=== PATIENT | male | born 1995 | race African-American/Black ===

== ENCOUNTER 2017-11-05 20:16 | Emergency (ER) | payer SELFPAY ==
[2017-11-05 20:43] LABS: Bilirubin Negative (Negative); Blood, Urine Trace (Negative); Clarity CLOUDY (Clear); Glucose, Urine (Dipstick) Negative (Negative); Leukocyte Moderate (Negative); Nitrite Negative (Negative); Protein, Urine (Dipstick) Negative (Neg-Trace); Specific Gravity, Urine 1.005 (1.002-1.036); Urobilinogen 0.2 mg/dL (0.2-1.0)
[2017-11-05 20:47] LABS: #Basophils 0.1 thou/uL (0.0-0.2); #Eosinphils 0.1 thou/uL (0.0-0.7); #Lymphocytes 2.9 thou/uL (1.20-3.40); #Monocytes 0.9 thou/uL (0.11-0.59); #Neutrophils 5.2 thou/uL (1.40-6.50); %Basophils 1.1 % (0.0-1.0); %Eosinophils 0.6 % (0.0-10.0); %Lymphocytes 31.6 % (21.0-51.0); %Neutrophils 56.8 % (42.0-75.0); Hemoglobin 15.9 g/dL (14.0-18.0); Mean Corpuscular HGB CONC 32.1 g/dL (32.0-36.0); Mean Corpuscular Hemoglobin 25.8 pg (27.0-31.0); Mean Corpuscular Volume 80.4 fl (80.0-94.0); Mean Platelet Volume 6.3 fL (7.4-10.4); Platelet Count 294 thou/uL (130-400); RBC Distribution Width 13.8 % (11.5-14.5); Red Blood Cell (RBC) Count 6.16 mill/uL (4.70-6.10); White Blood Cell (WBC) Count 9.1 thou/uL (4.8-10.8)
[2017-11-05 20:50] LABS: Bacteria/HPF None Seen HPF (None Seen); Hyaline Casts/LPF 0-3 HYALINE CAST LPF (0-3 Hyaline); RBC/HPF 0-3 HPF (0-3); Squamous Epithelial 0-3 HPF (0-3)
[2017-11-05] MEDS ORDERED: Ketorolac Tromethamine 30 MG/ML VIAL ONE (21:08)
[2017-11-05 21:09] LABS: ALT (SGPT) 12 U/L (8-55); AST (SGOT) 17 U/L (5-34); Albumin 4.3 g/dL (3.5-5.0); Alkaline Phosphatase 55 U/L (40-150); Anion Gap 12 mmol/L (10-20); BUN (Urea Nitrogen) 7 mg/dL (8.9-20.6); Bilirubin, Total 0.7 mg/dL (0.2-1.2); Calc. Creatinine Clearance 0 mL/min (70-130); Calcium 9.9 mg/dL (7.8-10.44); Carbon Dioxide 26 mmol/L (22-29); Chloride 101 mmol/L (98-107); Estimated GFR-MDRD 90; Globulin 2.9 g/dL (2.4-3.5); Glucose 81 mg/dL (70-105); Lipase 13 U/L (8-78); Potassium 4.4 mmol/L (3.5-5.1); Protein, Total 7.2 g/dL (6.0-8.3); Sodium 135 mmol/L (136-145)
--- NOTE | 2017-11-05 23:23 | CT ---
CT OF ABDOMEN AND PELVIS 11/05/17 COMPARISON: 06/30/14. HISTORY: Right flank pain radiating anteriorly. TECHNIQUE: Serial axial CT imaging at 5 mm intervals from the lung bases through the pubic symphysis without con trast. Coronal reformatted imaging obtained. FINDINGS: The lack of contrast media limits assessment of the viscera, bowel, vascular structures and for lymph adenopathy. The imaged lung bases are unremarkable. No free intraperitoneal air is noted. Limited assessment of t he liver, gallbladder, spleen, pancreas, adrenal glands and kidneys is unremarkable. No hydronephrosis or nephrolithiasis seen on either side. Paucity of intra-abdominal fat limits detai led assessment of bilateral ureters. Urinary bladder is decompressed. No calcification is seen along the course of either ureter. Limited assessment of the bowel demonstrates no evidence for bowel obstruction. Appendix appears unre markable. No acute osseous abnormality. IMPRESSION: No evidence for obstructive uropathy or nephrolithiasis. POS: [facility]
[2017-11-05] MEDS ORDERED: Methocarbamol 500 MG TAB PO SCH (23:45)
== END 2017-11-05 23:23 | disposition home or self-care (01) ==
LOC: ERS 20:16
DX: N39.0 Urinary tract infection, site not specified (principal)
CPT/HCPCS: 36415; 74176; 80053; 81003; 81015; 83690; 85025; 87086; 96361; 96374; J1885

== ENCOUNTER 2018-01-14 18:02 | Emergency (ER) | payer SELFPAY ==
[~2018-01-14 18:02] MED LIST: ISOVUE-370 76%-LOCM 1 ML ONE
[2018-01-14] MEDS ORDERED: Ondansetron ODT 4 MG TAB ONE (19:09)
[2018-01-14] MEDS ORDERED: Morphine 4 MG/ML VIAL ONE (19:09)
[2018-01-14 19:11] LABS: #Basophils 0.1 thou/uL (0.0-0.2); #Lymphocytes 1.8 thou/uL (1.20-3.40); #Monocytes 1.2 thou/uL (0.11-0.59); #Neutrophils 8.7 thou/uL (1.40-6.50); %Basophils 0.7 % (0.0-1.0); %Eosinophils 0.2 % (0.0-10.0); %Lymphocytes 15.3 % (21.0-51.0); %Monocytes 10.3 % (0.0-10.0); %Neutrophils 73.6 % (42.0-75.0); Hemoglobin 13.3 g/dL (14.0-18.0); Mean Corpuscular HGB CONC 33.4 g/dL (32.0-36.0); Mean Corpuscular Hemoglobin 26.6 pg (27.0-31.0); Mean Corpuscular Volume 79.6 fl (80.0-94.0); Mean Platelet Volume 7.2 fL (7.4-10.4); Platelet Count 284 thou/uL (130-400); RBC Distribution Width 13.5 % (11.5-14.5); Red Blood Cell (RBC) Count 4.99 mill/uL (4.70-6.10); White Blood Cell (WBC) Count 11.8 thou/uL (4.8-10.8)
--- NOTE | 2018-01-14 19:26 | CT ---
NECK CT WITH CONTRAST: CLINICAL HISTORY: Neck pain. Edema. FINDINGS: There is asymmetric soft tissue prominence of the left neck soft tissues, which involves the submenta l, left submandibular, and left buccal regions. There is extensive regional adenopathy. Soft tissue edema is present without a well formed drainable fluid collection. Patient motion distorts imaging anatomy. There is no obvious acute process of the aerodigestive tract. There is prominence of the a denoid and palatine tonsils. Prominent streak artifact from dental hardware limits visualization. R etention cyst formation in the right maxillary sinus is present, and there is scattered paranasal sin us mucosal thickening. There are periapical/periodontal lucencies, notably involving the left mandibu lar premolar region. IMPRESSION: 1. Findings most consistent with facial cellulitis and reactive adenopathy. Recommend clinical maycol elation in this regard. 2. There is no drainable abscess evident. 3. Tonsillar hypertrophy. Limited visualization of the oral cavity and oropharynx due to prominent streak artifact from dental hardware. 4. Incidental note of periapical/periodontal lucencies, notably involving the left mandibular premol ar region, suggestive of a prominent periapical odontogenic abscess. This does approximate and atten uate the overlying lateral left mandibular cortex and may be the source for the patient's soft tissue findings. Recommend dental consultation. POS: [facility]
[2018-01-14] MEDS ORDERED: Clindamycin/D5W 900 mg/50 ml Premix Bag ONE (19:27)
[2018-01-14 19:38] LABS: ALT (SGPT) 14 U/L (8-55); AST (SGOT) 21 U/L (5-34); Albumin 4.3 g/dL (3.5-5.0); Alkaline Phosphatase 70 U/L (40-150); Anion Gap 14 mmol/L (10-20); BUN (Urea Nitrogen) 5 mg/dL (8.9-20.6); Bilirubin, Total 1.9 mg/dL (0.2-1.2); Calc. Creatinine Clearance 0 mL/min (70-130); Carbon Dioxide 26 mmol/L (22-29); Chloride 102 mmol/L (98-107); Estimated GFR-MDRD Greater than 90; Globulin 3.1 g/dL (2.4-3.5); Glucose 97 mg/dL (70-105); Potassium 3.7 mmol/L (3.5-5.1); Protein, Total 7.4 g/dL (6.0-8.3); Sodium 138 mmol/L (136-145)
[2018-01-14] MEDS ORDERED: Acetaminophen/Codeine 30-300mg Tablet ONE (20:50)
== END 2018-01-14 20:58 | disposition home or self-care (01) ==
LOC: ERS 18:02
DX: K12.2 Cellulitis and abscess of mouth (principal); K02.9 Dental caries, unspecified
CPT/HCPCS: 36415; 70491; 80053; 83605; 85025; 87040; 87149; 96365; 96375; J2270; J3490; Q0162

== ENCOUNTER 2018-01-23 08:13 | Inpatient (IN) | payer SELFPAY ==
[2018-01-23] MEDS ORDERED: Ketorolac Tromethamine 30 MG/ML VIAL ONE (09:19)
[2018-01-23 09:42] LABS: Hemoglobin 12.1 g/dL (14.0-18.0); Mean Corpuscular HGB CONC 31.8 g/dL (32.0-36.0); Mean Corpuscular Hemoglobin 25.1 pg (27.0-31.0); Platelet Count 496 thou/uL (130-400); RBC Distribution Width 13.7 % (11.5-14.5); Red Blood Cell (RBC) Count 4.82 mill/uL (4.70-6.10); White Blood Cell (WBC) Count 14.8 thou/uL (4.8-10.8)
[2018-01-23 10:01] LABS: ALT (SGPT) 23 U/L (8-55); AST (SGOT) 17 U/L (5-34); Albumin 3.7 g/dL (3.5-5.0); Alkaline Phosphatase 130 U/L (40-150); Anion Gap 13 mmol/L (10-20); BUN (Urea Nitrogen) 7 mg/dL (8.9-20.6); Bilirubin, Total 0.9 mg/dL (0.2-1.2); Calc. Creatinine Clearance 0 mL/min (70-130); Calcium 9.8 mg/dL (7.8-10.44); Carbon Dioxide 31 mmol/L (22-29); Chloride 96 mmol/L (98-107); Estimated GFR-MDRD Greater than 90; Globulin 4.1 g/dL (2.4-3.5); Glucose 108 mg/dL (70-105); Potassium 3.9 mmol/L (3.5-5.1); Protein, Total 7.8 g/dL (6.0-8.3); Sodium 136 mmol/L (136-145)
[2018-01-23 10:16] LABS: Band 13 % (5-11); Eosinophils 1 % (0-10); Lymphocytes 17 % (21-51); MDiff Complete? YES; Monocytes 10 % (0-10); Neutrophil 59 % (42-75); RBC Morphology Normal
--- NOTE | 2018-01-23 10:45 | CT ---
CONTRAST ENHANCED CT IMAGES OF MANDIBLE MAXILLA: HISTORY: Complaining of jaw pain. Symptoms onset 3 weeks ago, worsening. The patient was sent to the dentist and reportedly on Clindamycin at this time with no relief. FINDINGS: Contrast-enhanced CT images of the mandible maxilla is obtained. Images demonstrate a large left inframandibular mass. There is an area of lucency involving the root of the left 1st molar compatible with dental caries and periodontal abscess. Areas of radiolucency seen along the both lateral and medial aspects of the body of the mandible which extends from the abs cess surrounding the apical portion of the left 1st mandibular molar. The abscess extends both media lly and laterally and extends inferiorly. The abscess extends posteriorly to envelope the inferior m argin of the base of the left body of the mandible extending posteriorly to extend lateral to the lef t mandibular ramus. Overall 3-dimensional size of the left perimandibular abscess measures up to 6.9 x 3.2 x 3.4 cm. Numerous septae are present. The abscess also extends into the left medial pterygo id muscles as well as extending laterally into the left masseter muscle. Extensive left submandibula r and delphian chain lymphadenopathy is also seen. Reactive lymphadenopathy is also seen in the left level II and level III lymph nodes. The abscess compresses the left carotid space posteriorly and m edially. IMPRESSION: Complex enlarged left mandibular origin abscess extending both medial and lateral as well as inferior to the body of the mandible enveloping the left mandibular ramus. The origin appears to be a periap ical abscess from the left 1st molar. Numerous right and left dental caries are also present in other teeth. POS: [facility]
[2018-01-23] MEDS ORDERED: Clindamycin/D5W 900 mg/50 ml Premix Bag ONE (12:10)
--- NOTE | 2018-01-23 13:18 | CON ---
DATE OF CONSULTATION: 01/23/2018 REASON FOR CONSULTATION: Left facial and jaw pain and swelling. HISTORY OF PRESENT ILLNESS: This is a 22-year-old black male with a three week history of left jaw p ain and swelling, and difficulty opening. He has no difficulty swallowing or breathing. He is in no distress currently. He has been in and out of the ER and local dental clinic for the last 3 weeks a nd placed on numerous courses of p.o. antibiotics including Flagyl and clindamycin and amoxicillin wi th no resolution of his swelling. CT scan was taken of his face, neck, and shown to find a large lef t neck and parapharyngeal area. The pterygomandibular area abscess associated with necrotic tooth #1 7 and possibly #19. PAST MEDICAL HISTORY: None. PAST SURGICAL HISTORY: The patient had a testicular torsion repair as a kid. SOCIAL HISTORY: Negative x3. Works, washing dishes. MEDICATIONS: None. ALLERGIES: No known drug allergies. PHYSICAL EXAMINATION: GENERAL: The patient is awake, alert, oriented x3, he is in no acute distress. VITAL SIGNS: Blood pressure 146/78, pulse 67, respiration 12, temperature 98.7, satting 98% on room air. GENERAL: He is awake, alert, oriented x3, no acute distress. HEENT: Pupils are equal, round, and reactive to light and accommodation. His oral opening is approx imately 10 mm. He has a large amount of left neck and jaw swelling. His oropharynx is clear. He merida s a necrotic tooth #17 which was partially impacted as well as a decayed necrotic tooth #19. CT scan of the face and neck shows a large deep neck space abscess, necrotic tooth #[address] Adrienne thacker, Radiology. ASSESSMENT: This is a 22-year-old black male with a left necrotic tooth #17 and #19 and associated d eep neck space abscesses which appear to be in the left pterygomandibular, submandibular, submasseter ic spaces. PLAN: Place patient on IV antibiotics per Hospitalist team. Okay for clindamycin 900 mg IV every 6 hours right now as well as planning on keeping the patient n.p.o. and will take to the operating room today for incision and drainage of above noted abscess is extraction of noted necrotic teeth #17 and #19, possibly #18. The patient may need intubation postoperatively due to large size of mass.
[2018-01-23] MEDS ORDERED: Glycopyrrolate 0.2 MG/ML 5 ML SYRINGE ONE (13:36)
[2018-01-23] MEDS ORDERED: PROPOFOL 200 MG/20 ML VIAL ONE (13:36)
[2018-01-23] MEDS ORDERED: Ondansetron PF 4 MG/2 ML Vial ONE (13:36)
[2018-01-23] MEDS ORDERED: Acetaminophen 325 MG TAB PO PRN (14:09)
[2018-01-23] MEDS ORDERED: Ondansetron PF 4 MG/2 ML Vial IVP PRN (14:09)
[2018-01-23] MEDS ORDERED: Dextrose 5 % And 0.9 % NaCl 1,000 ML IV SCH (14:15)
[2018-01-23] MEDS ORDERED: ISOVUE-370 76%-LOCM 1 ML ONE (14:51)
[2018-01-23] MEDS ORDERED: Ibuprofen 200 MG TAB PO SCH (15:00)
[2018-01-23] MEDS ORDERED: Chlorhexidine Gluconate 15 ML UDCUP SSP ONE (16:21)
[2018-01-23] MEDS ORDERED: Lidocaine 2% w/Epinephrine 1:200K 20 ML VIAL ONE (16:21)
[2018-01-23] MEDS ORDERED: Dexmedetomidine 200 MCG/2 ML VIAL ONE (16:30)
--- NOTE | 2018-01-23 16:49 | HP ---
REASON FOR ADMISSION: Left mandibular abscess. HISTORY OF PRESENT ILLNESS: The patient gives history of progressive swelling of the left cheek area from the last 3 weeks. He had gone to see local dentist and was prescribed antibiotics. This was not coming down and he went to [facility] to see a physician there. He was advised to go to the emergency room as the swelling was really big and he needed IV antibiotics and further consultations. Currently, patient has difficulty opening his mouth. He also has pain in the left mandible area. The pain is 4-5/10 in intensity with no radiation as such. The patient admits to having caries tooth and states it might be his wisdom tooth. He had a CAT scan done here which shows multiple caries with large submandibular abscess on the left side. PAST MEDICAL/SURGICAL HISTORY: Testicular torsion with surgery done 3 or 4 years ago. No other medical history or surgery done. CURRENT MEDICATIONS: None. ALLERGIES: No known drug allergies. PERSONAL HISTORY: Does not abuse alcohol or drugs. No history of smoking. Works at [employer]. FAMILY HISTORY: Mother is currently in a skilled nursing. Father lives separately. He stays with his grandma. CODE STATUS: FULL. REVIEW OF SYSTEMS: The following complete review of systems was negative, unless otherwise mentioned in the HPI or below: Constitutional: Weight loss or gain, ability to conduct usual activities. Skin: Rash, itching. Eyes: Double vision, pain. ENT/Mouth: Nose bleeding, neck stiffness, pain, tenderness. Cardiovascular: Palpitations, dyspnea on exertion, orthopnea. Respiratory: Shortness of breath, wheezing, cough, hemoptysis, fever or night sweats. Gastrointestinal: Poor appetite, abdominal pain, heartburn, nausea, vomiting, constipation, or diarrhea. Genitourinary: Urgency, frequency, dysuria, nocturia. Musculoskeletal: Pain, swelling. Neurologic/Psychiatric: Anxiety, depression. Allergy/Immunologic: Skin rash, bleeding tendency. PHYSICAL EXAMINATION: GENERAL: Patient is a 22-year-old male who is currently in mild distress from pain. VITAL SIGNS: Blood pressure 130/70, pulse 68 per minute, respiratory rate 18 per minute, temperature 98.7 degrees Fahrenheit, saturating 100% on room air. NECK: Supple, no elevated JVD. HEENT: Eyes, extraocular muscles intact. Pupils reacting to light. Oral cavity, patient appears to have trismus and he also has large left mandibular and submandibular area of swelling. There is no fluctuant mass felt. No ear discharge. CARDIOVASCULAR: S1, S2 heard. Regular rhythm. RESPIRATORY: Air entry 2+ bilateral. No rales or rhonchi. ABDOMEN: Soft, bowel sounds heard. No tenderness, rigidity or guarding. EXTREMITIES: No peripheral edema or calf tenderness. VASCULAR SYSTEM: Peripheral pulses 2+ bilateral, no ischemic ulcerations or gangrene. CENTRAL NERVOUS SYSTEM: No gross focal deficits seen. Patient is alert, awake , and oriented well. PSYCHIATRIC: Patient's mood is euthymic. No hallucinations or delusions. LABORATORY AND X-RAY FINDINGS: White count of 14, H&H 12 and 38, platelet count 496 with 59% neutrophils, 13% bands. Serum bicarbonate 31, BUN 7, creatinine 0.9, glucose 108. Liver enzymes within normal limits. Albumin is 3.7. Facial bone CT done shows complex enlarged left mandibular origin abscess extending both medial and lateral as well as inferior to the body of the mandible enveloping the left mandibular ramus, the origin appears to be a periapical abscess from the left first molar. There were also numerous right and left dental caries seen. CLINICAL IMPRESSION AND PLAN: Patient has already been evaluated by Dr. Christian , facial maxillary surgeon in the ER. He plans to take him to OR for drainage of the abscess and extraction of 17, 18 and 19 tooth on the left side. He will be on clindamycin 900 mg q.8 hourly along with D5 normal saline at 100 mL per hour. He will be kept n.p.o. for the procedure. He will also be on Motrin and morphine for pain. We will continue to closely monitor him on medical/surgical floor. [facility]
[2018-01-23] MEDS ORDERED: Oxymetazoline HCl 0.05% ( 15 ML ) ONE (16:52)
[2018-01-23] MEDS ORDERED: Midazolam HCl 2 mg/2 ml Vial ONE (16:52)
[2018-01-23] MEDS ORDERED: Fentanyl 100 MCG/2 ML VIAL ONE (16:52)
[2018-01-23] MEDS ORDERED: Lidocaine 2% Jelly 5 ML TUBE ONE (16:59)
[2018-01-23 17:23] VITALS: BMI 24.4
[2018-01-23] MEDS ORDERED: PACU-Morphine 4MG/ML VIAL SLOW IVP PRN (17:58)
[2018-01-23] MEDS ORDERED: Meperidine HCl/PF 25 MG/ML VIAL SLOW IVP PRN (17:58)
[2018-01-23] MEDS ORDERED: Morphine Sulfate 2 MG/ML SYRINGE SLOW IVP PRN (17:58)
[2018-01-23] MEDS ORDERED: Promethazine HCl 25 MG/ML VIAL SLOW IVP PRN (17:58)
[2018-01-23] MEDS ORDERED: HYDROmorphone 2 MG/ML VIAL SLOW IVP PRN (17:58)
[2018-01-23] MEDS ORDERED: Meperidine HCl/PF 25 MG/ML VIAL ONE (18:57)
[2018-01-23] MEDS ORDERED: Morphine 4 MG/ML VIAL ONE (19:55)
[2018-01-23] MEDS ORDERED: Clindamycin/D5W 900 MG in Premix Bag 1 BAG IVPB SCH (20:00)
[2018-01-23] MEDS ORDERED: Morphine 4 MG/ML VIAL SLOW IVP PRN (20:33)
[2018-01-23] MEDS ORDERED: Ondansetron PF 4 MG/2 ML Vial SLOW IVP PRN (20:34)
[2018-01-23] MEDS: D5 0.9% NS w/ 20 mEq KCl 1,000 ML IV SCH (20:51)
[2018-01-23] MEDS: Famotidine 20 MG TAB PO SCH (21:00)
[2018-01-23] MEDS: Ibuprofen 800 MG TAB PO SCH (23:50)
[2018-01-23] MEDS: HYDROcodone/Acetaminophen 7.5/325 mg Tablet PO PRN (23:51)
[2018-01-23] MEDS: Chlorhexidine Gluconate 15 ML UDCUP SSP SCH (23:52)
[2018-01-23] MEDS: Clindamycin/D5W 900 MG in Premix Bag 1 BAG IVPB SCH (23:52)
[2018-01-24 05:35] LABS: Anion Gap 9 mmol/L (10-20); BUN (Urea Nitrogen) 9 mg/dL (8.9-20.6); Calc. Creatinine Clearance 138 mL/min (70-130); Calcium 9.2 mg/dL (7.8-10.44); Carbon Dioxide 34 mmol/L (22-29); Chloride 98 mmol/L (98-107); Estimated GFR-MDRD Greater than 90; Glucose 104 mg/dL (70-105); Potassium 4.2 mmol/L (3.5-5.1); Sodium 137 mmol/L (136-145)
[2018-01-24] MEDS: Ibuprofen 800 MG TAB PO SCH ×4 (06:28→23:53)
[2018-01-24 06:31] LABS: Hemoglobin 11.1 g/dL (14.0-18.0); Mean Corpuscular HGB CONC 32.4 g/dL (32.0-36.0); Mean Corpuscular Hemoglobin 25.6 pg (27.0-31.0); Mean Corpuscular Volume 79.3 fl (80.0-94.0); Mean Platelet Volume 7.1 fL (7.4-10.4); Platelet Count 470 thou/uL (130-400); RBC Distribution Width 13.6 % (11.5-14.5); Red Blood Cell (RBC) Count 4.34 mill/uL (4.70-6.10); White Blood Cell (WBC) Count 21.3 thou/uL (4.8-10.8)
[2018-01-24] MEDS: Clindamycin/D5W 900 MG in Premix Bag 1 BAG IVPB SCH ×4 (06:31→23:54)
[2018-01-24 08:47] LABS: Band 16 % (5-11); Eosinophils 1 % (0-10); Lymphocytes 12 % (21-51); MDiff Complete? YES; Monocytes 13 % (0-10); Neutrophil 54 % (42-75); PLT Morphology Comment Appears Increased; Polychromasia SLIGHT = 2-3 cells (100X) (0-2/hpf); Reactive Lymphocytes 1 % (0-10); Target Cells SLIGHT = 2-5 cells (100X) (0-1/hpf)
[2018-01-24] MEDS: Enoxaparin Sodium 40 MG/0.4 ML SYRINGE SC SCH (09:04)
[2018-01-24] MEDS: Famotidine 20 MG TAB PO SCH ×2 (09:04→21:23)
[2018-01-24] MEDS: Chlorhexidine Gluconate 15 ML UDCUP SSP SCH ×3 (09:06→21:25)
--- NOTE | 2018-01-24 13:27 | PDOC.PN ---
- Subjective Encounter Start Date: 01/24/18 Encounter Start Time: 10:50 Subjective: still has swelling of left cheek and neck area -: pain is controlled with current meds -: grandmother in room - Objective Resuscitation Status: Resuscitation Status FULL:Full Resuscitation MAR Reviewed: Yes Vital Signs & Weight: Vital Signs (12 hours) Temp Pulse Resp BP BP Pulse Ox 01/24/18 12:59 97.9 F 79 18 129/67 01/24/18 09:01 98.6 F 72 18 121/60 100 01/24/18 08:15 98.6 F 72 18 01/24/18 04:40 98 F 66 20 118/55 L 100 I&O: 01/23/18 01/24/18 01/25/18 06:59 06:59 06:59 Intake Total 2290 Balance 2290 Result Diagrams: 01/24/18 04:10 01/24/18 04:10 Phys Exam - Physical Examination HEENT: PERRLA, sclera anicteric has drain+ Neck: no JVD Respiratory: no wheezing, no rales Cardiovascular: RRR, no significant murmur Gastrointestinal: soft, non-tender, positive bowel sounds Musculoskeletal: no edema, pulses present Neurological: non-focal, moves all 4 limbs Psychiatric: normal affect, A&O x 3 Dx/Plan (1) left mandibular abscess Status: Acute Comment: s/p I&D 01/23/2018 (2) Dental caries Code(s): K02.9 - DENTAL CARIES, UNSPECIFIED Status: Acute (3) Sepsis Code(s): A41.9 - SEPSIS, UNSPECIFIED ORGANISM Status: Acute Qualifiers: Sepsis type: sepsis due to unspecified organism Qualified Code(s): A41.9 - Sepsis, unspecified organism - Plan is on clindamycin -: motrin, morphine prn -: gentle iv hydration -: diet per * . Review of Systems - Medications/Allergies Allergies/Adverse Reactions: Allergies Allergy/AdvReac Type Severity Reaction Status Date / Time No Known Drug Allergies Allergy Unverified 11/05/17 23:40 Medications: Current Medications Acetaminophen (Tylenol) 650 mg PO Q4H PRN PRN Reason: Headache/Fever or Pain Hydrocodone Bitart/Acetaminophen ([place] 7.5/325) 1 tab PO Q6H PRN PRN Reason: Moderate Pain (4-6) Last Admin: 01/23/18 23:51 Dose: 1 tab Chlorhexidine Gluconate (Chlorhexidine Gluconate) 15 ml SSP TID [facility] Last Admin: 01/24/18 09:06 Dose: 15 ml Enoxaparin Sodium (Lovenox) 40 mg SC 0900 [facility] Last Admin: 01/24/18 09:04 Dose: 40 mg Famotidine (Pepcid) 20 mg PO BID [facility] Last Admin: 01/24/18 09:04 Dose: 20 mg Potassium Chloride/Dextrose/Sod Cl (D5 0.9% Ns W/ 20 Meq Kcl) 1,000 mls @ 100 mls/hr IV .Q10H [facility] Last Admin: 01/23/18 20:51 Dose: 1,000 mls Clindamycin Phosphate/Dextrose (900 mg/ Device) 50 mls @ 100 mls/hr IVPB Q6HR [facility] Last Admin: 01/24/18 06:31 Dose: 50 mls Ibuprofen (Motrin) 800 mg PO Q6HR [facility] Last Admin: 01/24/18 06:28 Dose: 800 mg Morphine Sulfate (Morphine) 2 mg SLOW IVP Q2H PRN PRN Reason: Severe Pain (7-10) Ondansetron HCl (Zofran) 4 mg SLOW IVP Q6H PRN PRN Reason: Nausea/Vomiting Sodium Chloride (Flush - Normal Saline) 10 ml IVF Q12HR [facility] Last Admin: 01/24/18 09:05 Dose: Not Given Sodium Chloride (Flush - Normal Saline) 10 ml IVF PRN PRN PRN Reason: Saline Flush
[2018-01-24] MEDS: HYDROcodone/Acetaminophen 7.5/325 mg Tablet PO PRN ×2 (13:35→21:24)
[2018-01-24] MEDS: D5 0.9% NS w/ 20 mEq KCl 1,000 ML IV SCH ×2 (19:57→21:34)
[2018-01-25] MEDS: HYDROcodone/Acetaminophen 7.5/325 mg Tablet PO PRN ×2 (05:27→11:50)
[2018-01-25] MEDS: Ibuprofen 800 MG TAB PO SCH ×2 (05:28→11:45)
[2018-01-25] MEDS: Clindamycin/D5W 900 MG in Premix Bag 1 BAG IVPB SCH ×2 (05:30→11:49)
[2018-01-25 05:46] LABS: #Eosinphils 0.4 thou/uL (0.0-0.7); #Lymphocytes 2.4 thou/uL (1.20-3.40); #Monocytes 1.4 thou/uL (0.11-0.59); #Neutrophils 7.8 thou/uL (1.40-6.50); %Basophils 0.3 % (0.0-1.0); %Lymphocytes 19.8 % (21.0-51.0); %Monocytes 11.4 % (0.0-10.0); %Neutrophils 65.5 % (42.0-75.0); Hemoglobin 10.8 g/dL (14.0-18.0); Mean Corpuscular HGB CONC 31.4 g/dL (32.0-36.0); Mean Corpuscular Hemoglobin 24.8 pg (27.0-31.0); Mean Corpuscular Volume 78.9 fl (80.0-94.0); Mean Platelet Volume 6.8 fL (7.4-10.4); Platelet Count 572 thou/uL (130-400); RBC Distribution Width 13.7 % (11.5-14.5); Red Blood Cell (RBC) Count 4.38 mill/uL (4.70-6.10)
[2018-01-25 06:05] LABS: Anion Gap 11 mmol/L (10-20); BUN (Urea Nitrogen) 14 mg/dL (8.9-20.6); Calc. Creatinine Clearance 118 mL/min (70-130); Calcium 9.2 mg/dL (7.8-10.44); Carbon Dioxide 32 mmol/L (22-29); Chloride 98 mmol/L (98-107); Estimated GFR-MDRD Greater than 90; Glucose 105 mg/dL (70-105); Potassium 3.8 mmol/L (3.5-5.1); Sodium 137 mmol/L (136-145)
[2018-01-25] MEDS: D5 0.9% NS w/ 20 mEq KCl 1,000 ML IV SCH (06:31)
--- NOTE | 2018-01-25 08:12 | OP ---
DATE OF PROCEDURE: 01/23/2018 PREOPERATIVE DIAGNOSES: Left submandibular, left pterygomandibular, left submasseteric abscess, necr otic teeth 17 and 19. PROCEDURE PERFORMED: Surgical removal of teeth #17 and 19. Tooth #17 is a soft tissue impacted, inc ision and drainage of left submandibular, left pterygomandibular left submasseteric abscess. POSTOPERATIVE DIAGNOSES: Left submandibular, left pterygomandibular, left submasseteric abscess as w ell as necrotic decayed teeth 17 and 19. COMPLICATIONS: None. DRAINS: The patient has 3 drains, they are all Myra drains; one is going to the submandibular spa ce to the extraction socket of #17, exits the left neck and the second one is going from the left sub masseteric space to the left neck. A third one is going to the pterygomandibular space and the area distal to the mandible exiting left neck. They were all secured with 2-0 Prolene stitches. SPECIMENS: Purulent culture was taken from the submandibular space through aspiration. ANESTHESIA: General endotracheal anesthesia, nasal tube was used. ESTIMATED BLOOD LOSS: 20 mL. BRIEF PATIENT HISTORY AND PROCEDURE IN DETAIL: This is a 22-year-old male with an approximately 3-we ek history of left jaw pain and swelling. He had progressive swelling, was on multiple p.o. course o f antibiotics per general dentist and primary care physicians. He finally came to the ER where he wa s noted to have the above noted space infections on CT scan and exam. The patient was very, very swo llen, very significant. The patient was taken to the operating room, prepped and draped in sterile f ashion. A throat pack was placed after suctioning of the oropharynx. Local anesthetic infiltration in the left neck and inferior alveolar nerve block were given with 1% lidocaine 1:10,000 epinephrine. An approximately 1.5 to 2 cm incision was made, curvilinear 2 cm inferior to the mandibular inferio r border and the left posterior mandible area. Sharp dissection through skin, subcutaneous tissue do wn to platysma. Platysma was then undermined and excised with a Bovie. Hemostat dissection in the s ubmandibular space with alyce pus as well as into the pterygomandibular space as well as the submasse teric space. Finger dissection was then used, large copious amounts of foul-smelling pus were draine d. Area irrigated with normal saline. The drains placed in the above noted fashion. The procedure was then taken to the oral cavity. A bite block was placed. Full thickness mucoperiosteal flap to t he buccal lingual of #17 through 19 and an elevator removal of tooth #17 with pus expelled from the s ocket, 19 was also removed after full thickness mucoperiosteal flap and suctioning of the tooth and e levator. The sockets were curetted thoroughly, irrigation with normal saline. A throat pack was rem floridalma. The patient tolerated the procedure well.
[2018-01-25] MEDS ORDERED: Docusate 100 MG CAP PO SCH (09:00)
[2018-01-25] MEDS: Enoxaparin Sodium 40 MG/0.4 ML SYRINGE SC SCH (11:45)
[2018-01-25] MEDS: Chlorhexidine Gluconate 15 ML UDCUP SSP SCH (11:45)
[2018-01-25] MEDS: Famotidine 20 MG TAB PO SCH (11:45)
[2018-01-25 11:51] VITALS: BP 127/67; TEMP 97.5
--- NOTE | 2018-01-25 12:43 | PDOC.PN ---
- Subjective Encounter Start Date: 01/25/18 Encounter Start Time: 08:30 Subjective: pain and swelling is coming down from left cheek and neck area -: feels better - Objective Resuscitation Status: Resuscitation Status FULL:Full Resuscitation MAR Reviewed: Yes Vital Signs & Weight: Vital Signs (12 hours) Temp Pulse Resp BP Pulse Ox 01/25/18 11:50 97.5 F L 65 20 127/67 01/25/18 07:49 98.5 F 71 20 139/61 100 01/25/18 04:15 98.6 F 74 18 116/51 L 99 I&O: 01/24/18 01/25/18 01/26/18 06:59 06:59 06:59 Intake Total 2290 1360 Balance 2290 1360 Result Diagrams: 01/25/18 05:26 01/25/18 05:26 Phys Exam - Physical Examination HEENT: PERRLA, sclera anicteric edema of left mandibular and cheek area is receding Neck: no JVD has 3 pen [place] drains+ Respiratory: no wheezing, no rales Cardiovascular: RRR, no significant murmur Gastrointestinal: soft, non-tender, positive bowel sounds Musculoskeletal: no edema, pulses present Neurological: non-focal, moves all 4 limbs Psychiatric: normal affect, A&O x 3 Dx/Plan (1) left mandibular abscess Status: Acute Comment: s/p I&D and extraction of tooth # 17 & 19, on 01/23/2018 (2) Dental caries Code(s): K02.9 - DENTAL CARIES, UNSPECIFIED Status: Acute (3) Sepsis Code(s): A41.9 - SEPSIS, UNSPECIFIED ORGANISM Status: Acute Qualifiers: Sepsis type: sepsis due to unspecified organism Qualified Code(s): A41.9 - Sepsis, unspecified organism Comment: resolving - Plan hemostable -: is on clindamycin, motrin and morphine prn -: full liq diet, ensure 1 can tid -: dc plan per oral surgery advice * . Review of Systems - Medications/Allergies Allergies/Adverse Reactions: Allergies Allergy/AdvReac Type Severity Reaction Status Date / Time No Known Drug Allergies Allergy Verified 01/25/18 05:26 Medications: Current Medications Acetaminophen (Tylenol) 650 mg PO Q4H PRN PRN Reason: Headache/Fever or Pain Hydrocodone Bitart/Acetaminophen ([place] 7.5/325) 1 tab PO Q6H PRN PRN Reason: Moderate Pain (4-6) Last Admin: 01/25/18 11:50 Dose: 1 tab Chlorhexidine Gluconate (Chlorhexidine Gluconate) 15 ml SSP TID [facility] Last Admin: 01/25/18 11:45 Dose: 15 ml Docusate Sodium (Colace) 100 mg PO BID [facility] Last Admin: 01/25/18 11:45 Dose: 100 mg Enoxaparin Sodium (Lovenox) 40 mg SC 0900 [facility] Last Admin: 01/25/18 11:45 Dose: 40 mg Famotidine (Pepcid) 20 mg PO BID [facility] Last Admin: 01/25/18 11:45 Dose: 20 mg Potassium Chloride/Dextrose/Sod Cl (D5 0.9% Ns W/ 20 Meq Kcl) 1,000 mls @ 100 mls/hr IV .Q10H [facility] Last Admin: 01/25/18 06:31 Dose: Not Given Clindamycin Phosphate/Dextrose (900 mg/ Device) 50 mls @ 100 mls/hr IVPB Q6HR [facility] Last Admin: 01/25/18 11:49 Dose: 50 mls Ibuprofen (Motrin) 800 mg PO Q6HR [facility] Last Admin: 01/25/18 11:45 Dose: 800 mg Morphine Sulfate (Morphine) 2 mg SLOW IVP Q2H PRN PRN Reason: Severe Pain (7-10) Ondansetron HCl (Zofran) 4 mg SLOW IVP Q6H PRN PRN Reason: Nausea/Vomiting Sodium Chloride (Flush - Normal Saline) 10 ml IVF Q12HR [facility] Last Admin: 01/25/18 11:46 Dose: Not Given Sodium Chloride (Flush - Normal Saline) 10 ml IVF PRN PRN PRN Reason: Saline Flush
--- NOTE | 2018-01-26 02:03 | DIS ---
DATE OF ADMISSION: 01/23/2018 DATE OF DISCHARGE: 01/25/2018 DISCHARGE DISPOSITION: To home. PRIMARY DISCHARGE DIAGNOSES: Patient is status post incision and drainage of left submandibular, left pterygomandibular, left submasseteric abscess, and surgical removal of teeth #17 and #19 done on 01/23/[address] Christian. PROCEDURES DONE DURING HOSPITALIZATION: Patient had above mentioned surgery done by Dr. Christian on the . Facial bone CAT scan done showed complex enlarged left mandibular origin abscess extending both medial and lateral as well as inferior to the body of the mandible, enveloping the left mandibular ramus, the origin appears to be a periapical abscess from the left first molar, numerous right and left dental caries were present. Had a white count of 21 on the 5th with discharge numbers of 12 and 16% bands, which has since resolved. Discharge BUN and creatinine is 14 and 1.1. DISCHARGE MEDICATIONS: Clindamycin, Motrin, both the dose and duration per Dr. Christian which has been faxed to his pharmacy by Dr. Christian. ALLERGIES: No known drug allergies. DISCHARGE PLAN: Patient will be following up with Dr. Christian in his office tomorrow. BRIEF COURSE DURING HOSPITALIZATION: The patient initially came to ER for swelling of left jaw and face. Initial CT scan of the facial bones done revealed abscess in the area around the mandible and submandibular area. He had also known history of caries. He had failed outpatient antibiotics as well. The patient was evaluated by Dr. Christian and was taken for incision and drainage of the abscess. He has three Myra drains placed and this will be removed in the morning after he evaluates him in his office tomorrow. The patient was placed on clindamycin, morphine, and a high dose Motrin. He has responded well to above measures. He is on full-liquid diet at present. He had extraction of tooth #17 and #19. This was done along with incision and drainage of the abscess. He is ambulating and he is hemodynamically stable. He has been cleared for discharge by Dr. Christian today. Please see a face-to- face documentation on [facility] for the day of discharge. [facility]
== END 2018-01-25 14:50 | disposition home or self-care (01) | DRG 854 ==
LOC: ERS 08:13 → OBSVTOIN 13:13 → 3SE 13:13
PROVIDERS: ADMIT Internal Medicine; ATTEND Internal Medicine
PROC: 0CDXXZ1 Extraction of Lower Tooth, Multiple, External Approach (ICD-10-PCS; principal; 2018-01-23)
PROC: 0W950ZZ Drainage of Lower Jaw, Open Approach (ICD-10-PCS; 2018-01-23)
DX: A41.9 Sepsis, unspecified organism (principal); K12.2 Cellulitis and abscess of mouth; L02.11 Cutaneous abscess of neck; K02.9 Dental caries, unspecified; B96.89 Other specified bacterial agents as the cause of diseases classified elsewhere
CPT/HCPCS: 36415; 70487; 80048; 80053; 85025; 87070; 87076; 87077; 87205; 96365; 96374; 96375; J1650; J1885; J2175; J2250; J2270; J2405; J2704; J3010; J3490

== ENCOUNTER 2018-12-07 20:42 | Inpatient (IN) | payer SELFPAY ==
[2018-12-07] MEDS ORDERED: Pantoprazole 40 MG VIAL ONE (21:55)
[2018-12-07] MEDS ORDERED: Water For Inject, Bacteriostat 30 ML ONE (21:57)
[2018-12-07 22:14] LABS: Hemoglobin 8.6 g/dL (14.0-18.0); Mean Corpuscular HGB CONC 30.9 g/dL (32.0-36.0); Mean Corpuscular Hemoglobin 24.6 pg (27.0-31.0); Mean Corpuscular Volume 79.5 fL (78.0-98.0); Mean Platelet Volume 6.9 fL (7.4-10.4); Platelet Count 247 thou/uL (130-400); RBC Distribution Width 14.1 % (11.5-14.5); Red Blood Cell (RBC) Count 3.51 mill/uL (4.70-6.10); White Blood Cell (WBC) Count 8.9 thou/uL (4.8-10.8)
[2018-12-07 22:28] LABS: #Basophils 0.1 thou/uL (0.0-0.2); #Eosinphils 0.1 thou/uL (0.0-0.7); #Lymphocytes 2.3 thou/uL (1.20-3.40); #Monocytes 0.7 thou/uL (0.11-0.59); #Neutrophils 5.7 thou/uL (1.40-6.50); %Eosinophils 1.5 % (0.0-10.0); %Lymphocytes 26.3 % (21.0-51.0); %Monocytes 7.5 % (0.0-10.0); %Neutrophils 63.7 % (42.0-75.0); Anisocytosis SLIGHT = 6-15 cells (100X) (0-5/hpf); Hypochromia SLIGHT = 6-15 cells (100X) (0-5/hpf); MDiff Complete? YES; Target Cells SLIGHT = 2-5 cells (100X) (0-1/hpf)
[2018-12-07 22:29] LABS: INR-International Normal Ratio 1.1; PTT 25.5 SEC (22.9-36.1); Prothrombin Time 13.8 SEC (12.0-14.7)
[2018-12-07 22:31] LABS: ALT (SGPT) 12 U/L (8-55); AST (SGOT) 19 U/L (5-34); Albumin 3.7 g/dL (3.5-5.0); Alkaline Phosphatase 47 U/L (40-150); Anion Gap 11 mmol/L (10-20); BUN (Urea Nitrogen) 17 mg/dL (8.9-20.6); Bilirubin, Total 0.2 mg/dL (0.2-1.2); Calc. Creatinine Clearance 0 mL/min (70-130); Calcium 8.8 mg/dL (7.8-10.44); Carbon Dioxide 27 mmol/L (22-29); Chloride 104 mmol/L (98-107); Estimated GFR-MDRD Greater than 90; Globulin 2.2 g/dL (2.4-3.5); Glucose 103 mg/dL (70-105); Potassium 3.8 mmol/L (3.5-5.1); Protein, Total 5.9 g/dL (6.0-8.3); Sodium 138 mmol/L (136-145)
[2018-12-08 00:22] VITALS: BMI 27.7
[2018-12-08] MEDS ORDERED: Sodium Chloride 0.9% (PF) 10 ML VIAL FS PRN (01:43)
[2018-12-08 02:02] LABS: #Basophils 0.1 thou/uL (0.0-0.2); #Eosinphils 0.1 thou/uL (0.0-0.7); #Lymphocytes 3.4 thou/uL (1.20-3.40); #Monocytes 0.7 thou/uL (0.11-0.59); #Neutrophils 4.8 thou/uL (1.40-6.50); %Basophils 0.9 % (0.0-1.0); %Eosinophils 1.6 % (0.0-10.0); %Lymphocytes 37.1 % (21.0-51.0); %Monocytes 7.9 % (0.0-10.0); %Neutrophils 52.4 % (42.0-75.0); Hemoglobin 8.3 g/dL (14.0-18.0); Mean Corpuscular HGB CONC 32.9 g/dL (32.0-36.0); Mean Corpuscular Hemoglobin 25.4 pg (27.0-31.0); Mean Corpuscular Volume 77.4 fL (78.0-98.0); Mean Platelet Volume 7.5 fL (7.4-10.4); Platelet Count 234 thou/uL (130-400); RBC Distribution Width 13.6 % (11.5-14.5); Red Blood Cell (RBC) Count 3.28 mill/uL (4.70-6.10); White Blood Cell (WBC) Count 9.2 thou/uL (4.8-10.8)
[2018-12-08] MEDS ORDERED: Diabetic Tussin 200 MG/10 ML UDCUP PO PRN (07:24)
[2018-12-08] MEDS ORDERED: Eucerin (Mineral Oil/Petrolatum,White) 30 gm Jar TOP PRN (07:24)
[2018-12-08] MEDS ORDERED: Cepastat Lozenges 1 LOZ PO PRN (07:24)
[2018-12-08] MEDS ORDERED: Artificial Tears 18 DROP/0.9 ML EA EYE PRN (07:24)
[2018-12-08] MEDS ORDERED: Senokot S 8.6-50 MG TAB PO PRN (07:24)
[2018-12-08] MEDS ORDERED: Loratadine 10 MG TAB PO PRN (07:24)
[2018-12-08] MEDS ORDERED: Ondansetron ODT 4 MG TAB PO PRN (07:24)
[2018-12-08] MEDS ORDERED: Acetaminophen 325 MG TAB PO PRN (07:24)
[2018-12-08] MEDS ORDERED: Sodium Chloride 0.65% Nasal 44 ML BOT EA NARE PRN (07:24)
[2018-12-08] MEDS ORDERED: Ondansetron PF 4 MG/2 ML Vial IVP PRN (07:24)
[2018-12-08] MEDS ORDERED: Loperamide HCl 2 MG CAP PO PRN (07:24)
[2018-12-08] MEDS ORDERED: hydrALAZINE 20 MG/ML VIAL SLOW IVP PRN (07:24)
[2018-12-08] MEDS ORDERED: HYDROcodone/Acetaminophen 5/325 mg Tablet PO PRN (07:24)
[2018-12-08] MEDS ORDERED: Bisacodyl 10 MG SUPP PR PRN (07:24)
[2018-12-08] MEDS ORDERED: Calcium Carbonate 500 MG ChewTAB PO PRN (07:24)
[2018-12-08] MEDS: Pantoprazole 40 MG VIAL IVP SCH ×2 (08:03→20:52)
[2018-12-08] MEDS: Sodium Chloride 0.9% 1,000 ML IV SCH ×2 (08:08→19:10)
--- NOTE | 2018-12-08 11:33 | HP ---
PRIMARY CARE PHYSICIAN: [facility] Call admission. REASON FOR ADMISSION: GI bleed. HISTORY OF PRESENT ILLNESS: A 23-year-old male, who has no significant medical history, who reports that last Tuesday and Tuesday, he drank heavily alcohol. Subsequently, he did not have any immediate symptoms, but three days later, he was having a blood with stool. Each day with bowel movement, he was noticing mixed black tarry, maroon, and fresh blood. He was feeling weak and dizzy. He was feeling tired last night, and that is why he decided to come to the emergency room for evaluation. This patient denies any NSAID. He denies any similar problem in the past. He denies any fever or chills. He denies any abdominal pain. He had some diarrhea, but it was improved. He denies any antibiotic exposure. He denies any weight loss. He denies any family history of colon cancer. This patient was having daily lower GI bleed and that is why he was alarmed and he decided to come to the emergency room for evaluation. He was initially evaluated at [facility] Emergency Room, and he was found with the hemoglobin of 8.6. Rest of blood test was unremarkable. The patient was transferred to our hospital for further evaluation and treatment. REVIEW OF SYSTEMS: CONSTITUTIONAL: Negative for weight loss or gain, ability to conduct usual activities. SKIN: Negative for rash, itching. EYES: Negative for double vision, pain. ENT/MOUTH: Negative for nose bleeding, neck stiffness, pain, tenderness. CARDIOVASCULAR: Negative for palpitations, dyspnea on exertion, orthopnea. RESPIRATORY: Negative for shortness of breath, wheezing, cough, hemoptysis, fever or night sweats. GASTROINTESTINAL: Negative for poor appetite, abdominal pain, heartburn, nausea, vomiting, constipation, or diarrhea. GENITOURINARY: Negative for urgency, frequency, dysuria, nocturia. MUSCULOSKELETAL: Negative for pain, swelling. NEUROLOGIC/PSYCHIATRIC: Negative for anxiety, depression. ALLERGY/IMMUNOLOGIC: Negative for skin rash, bleeding tendency. Please see my HPI for pertinent positive and negative. All other review of systems reviewed and negative except as mentioned in HPI. PAST MEDICAL HISTORY: Reviewed and negative. PAST SURGICAL HISTORY: Testicular surgery and jaw surgery. PAST PSYCHIATRIC HISTORY: Reviewed and negative. SOCIAL HISTORY: The patient smokes about half pack per day. He drinks alcohol socially, but he had a heavy drink last week. He denies any other illicit drug abuse. FAMILY HISTORY: No family history of coronary artery disease, stroke, or cancer. No family history of colon cancer or inflammatory bowel disease. ALLERGIES: NO KNOWN DRUG ALLERGIES. CURRENT HOME MEDICATIONS: The patient is not taking any prescribed or non-prescribed medication. EMERGENCY ROOM COURSE: The patient is given Protonix 40 mg IV, IV fluid. PHYSICAL EXAMINATION: VITAL SIGNS: On arrival, blood pressure 129/60, pulse 109, respiratory rate 14, temperature 98.9, saturation 100% on room air. Weight 216 kg. GENERAL: The patient is currently alert, oriented, no acute distress. HEENT: Head; normocephalic and atraumatic. Eyes; pupils round and reactive to light. Extraocular muscle intact. ENT, oropharynx within normal limits. Moist mucous membranes. No oral lesion. No pharyngeal erythema. No exudate. NECK: Supple. No JVD. No thyromegaly. No carotid bruit. No jugular venous distention. LUNGS: Clear to auscultation without any rhonchi or rales. CARDIAC: S1 and S2. Regular without any murmur. ABDOMEN: Soft. Bowel sounds present. Nontender. Nondistended. No organomegaly. No mass. No suprapubic tenderness. BACK: Unremarkable. No CVA tenderness. RECTAL: Done in the emergency room consistent with blood positive in the rectal wall. NEUROLOGIC: Nonfocal examination. HEMATOLOGICAL: No lymphadenopathy. PSYCHIATRIC: Normal affect. SIGNIFICANT LABORATORY DATA: CBC; WBC 8.9, hemoglobin 8.6, and platelets 247. INR 1.1. BMP; sodium 138, potassium 3.8, chloride 104, BUN 17, creatinine 1.18, carbon dioxide 27, glucose 103, and calcium 8.8. LFT; AST 19, ALT 12, alkaline phosphatase 47, and albumin 3.7. ASSESSMENT AND PLAN: 1. Acute gastrointestinal bleed, predominantly suspecting lower gastrointestinal bleed. This patient's description of mixed stool including melena, maroon color stool, and fresh blood is concerning. He does not have any classic history of inflammatory bowel disease. He does not have any NSAID abuse. He does not have any significant family history, but he has alarming feature of anemia. At this point, this patient will require GI consultation for evaluation with at least upper and lower endoscopy to identify the etiology of his gastrointestinal bleed. Differential diagnosis is internal hemorrhoid, colitis, inflammatory bowel disease, less likely cancer, arteriovenous malformation. All this needs to be excluded with colonoscopy. Meanwhile, we will continue with n.p.o. for now until GI see him, and after that, we will decide to start clear liquid diet depending upon when endoscopy is planned. We will continue to monitor his labs. We will continue with Protonix 40 mg daily. We will monitor H and H, and we will consider transfusion if needed. The patient will need iron infusion. We will check ferritin, iron study. 2. Anemia due to acute blood loss. As mentioned above, we will monitor his hemodynamics and H and H. 3. Tobacco and alcohol abuse. Smoking cessation counseling given. Healthy lifestyle measure discussed with the patient. 4. Deep venous thrombosis prophylaxis, SCD boots, no Lovenox because of gastrointestinal bleed. 5. Gastrointestinal prophylaxis, the patient is already on Protonix therapy. CODE STATUS: The patient is full code. The patient is making his own decision. DISPOSITION PLAN: Based on clinical course. We are expecting the patient's stay in hospital 24 to 48 hours. Plan of care discussed with the patient and family member at bedside. Job ID: [id number]
[2018-12-08 12:02] LABS: Iron 137 ug/dL (65-175); Iron Binding Capacity, Total 248 mcg/dL (261-462)
--- NOTE | 2018-12-08 15:37 | CON ---
DATE OF CONSULTATION: 12/08/2018 REASON FOR CONSULTATION: Anemia and GI bleeding. REFERRING PHYSICIAN: [facility]. HISTORY OF PRESENT ILLNESS: Mr. Loco River is a 23-year-old male seen in the ER with a history of passing black tarry stool and also some dark blood over the last 4 days. The patient has no abdominal pain, no nausea, and no vomiting. No similar episodes in the past. The patient does not take any aspirin or any NSAID medication. He does drink alcohol socially about 3 beers on the weekend. He also smokes an occasional cigarette. He does not smoke on a regular basis. The patient has no prior history of peptic ulcer disease. Negative abdominal pain, dyspepsia, or indigestion. However, his grandmother was with him in the room with him, who tells me that he has had some stomach upset off and on for a long time. The patient had taken pictures on his cellphone of the bowel movement. The stools are actually melanous and not fresh blood. He denies any dizziness or any fatigue. He surgeries. Apparently, he has gotten a lot of stress lately. His had a miscarriage and he is kind of somewhat upset about it. The CBC yesterday showed the hemoglobin 8.6, hematocrit 27.9, and MCV 79.5. Today, not much changed from yesterday, hemoglobin 8.3 and hematocrit 24.3. The platelet count is 234,000. His Chem-7 shows normal Chem-7 and BUN is actually normal at 17. At the present time, he offers no complaints. ALLERGIES: NONE. SOCIAL HISTORY: The patient is . He smokes a couple of cigarettes here and there. He drinks alcohol socially, maybe 3 beers on the weekend. MEDICAL ILLNESSES: None. SURGERIES: None. FAMILY HISTORY: Grandfather had lung cancer and prostate cancer. MEDICATIONS: Medication list in the hospital reviewed, which include, 1. Dulcolax. 2. Hydralazine. 3. Loperamide. 4. Hydrocodone. 5. . REVIEW OF SYSTEMS: A 10-point system review; CONSTITUTIONAL: No weight loss. No fever. He had good exercise tolerance. HEENT: No headache. No dizziness. No diplopia. No hearing impairment. No sore throat. NECK: No stiffness or pain. LUNGS: No chronic cough, hemoptysis, or dyspnea. CARDIOVASCULAR SYSTEM: No chest pain. No palpitation. No dyspnea, orthopnea, or PND. GI: Black stool over the last several days. : Unremarkable. MUSCULOSKELETAL: Unremarkable. ENDOCRINE: Unremarkable. NEUROPSYCHIATRY: Unremarkable. PHYSICAL EXAMINATION: GENERAL: He appears very comfortable. He is in no distress. VITAL SIGNS: Actually very stable. Temperature 98.1 degrees Fahrenheit, pulse is 75, and blood pressure is 112/62. HEENT: Conjunctivae clear. NECK: Supple. No adenitis or thyromegaly noted. CARDIOVASCULAR SYSTEM: First and second heart sounds heard. LUNGS: Clear to auscultation. ABDOMEN: Soft. No organomegaly. No tenderness. No masses. EXTREMITIES: Reveal no edema. CENTRAL NERVOUS SYSTEM: Grossly within normal limits. LABORATORY DATA: Admitting labs today showed hemoglobin is 8.3, hematocrit 24.3, MCV 77.4, platelet count 234,000, polymorphs 52, lymphocytes 37, and WBC 9200. Chem-7 is perfectly normal. Albumin is 3.7 and total protein is 5.9. Liver function tests normal. CLINICAL IMPRESSION: 1. A 23-year-old male with anemia and history of passing black tarry stool over the last 3 to 4 days. He also says he is passing dark blood. However, the stools appears more of melanous than actual blood. Based on the history, I believe he most likely has peptic ulcer disease or prior bleeding. 2. Anemia due to blood loss. RECOMMENDATIONS: 1. PPI. 2. N.p.o. 3. EGD later on today and I will make further recommendations. Job ID: [id number]
[2018-12-08] MEDS ORDERED: PROPOFOL 200 MG/20 ML VIAL ONE (16:26)
[2018-12-08] MEDS ORDERED: EPINEPHrine 1 MG/10 ML Abboject SYRINGE ONE (16:26)
[2018-12-08] MEDS ORDERED: Ondansetron HCl/PF 4 MG/2 ML Vial IVP PRN (18:40)
[2018-12-08] MEDS ORDERED: Promethazine HCl 25 MG/ML VIAL SLOW IVP PRN (18:40)
[2018-12-08] MEDS ORDERED: Promethazine HCl 25 MG/ML VIAL IM PRN (18:40)
[2018-12-08] MEDS ORDERED: Fentanyl 100 MCG/2 ML VIAL ONE (18:45)
[2018-12-08] MEDS ORDERED: Ondansetron PF 4 MG/2 ML Vial ONE (18:50)
[2018-12-08 19:06] LABS: #Eosinphils 0.2 thou/uL (0.0-0.7); #Lymphocytes 2.7 thou/uL (1.20-3.40); #Monocytes 0.6 thou/uL (0.11-0.59); %Basophils 0.5 % (0.0-1.0); %Eosinophils 2.2 % (0.0-10.0); %Lymphocytes 31.8 % (21.0-51.0); %Monocytes 7.1 % (0.0-10.0); %Neutrophils 58.5 % (42.0-75.0); Hemoglobin 8.9 g/dL (14.0-18.0); Mean Corpuscular HGB CONC 32.9 g/dL (32.0-36.0); Mean Corpuscular Hemoglobin 26.5 pg (27.0-31.0); Mean Corpuscular Volume 80.6 fL (78.0-98.0); Mean Platelet Volume 7.4 fL (7.4-10.4); Platelet Count 241 thou/uL (130-400); Red Blood Cell (RBC) Count 3.35 mill/uL (4.70-6.10); White Blood Cell (WBC) Count 8.5 thou/uL (4.8-10.8)
[2018-12-08] MEDS: Zolpidem Tartrate 5 MG TAB PO PRN (21:03)
[2018-12-09] MEDS: Sodium Chloride 0.9% 1,000 ML IV SCH ×2 (03:09→15:18)
[2018-12-09 06:56] LABS: #Eosinphils 0.1 thou/uL (0.0-0.7); #Lymphocytes 2.6 thou/uL (1.20-3.40); #Neutrophils 11.4 thou/uL (1.40-6.50); %Basophils 0.2 % (0.0-1.0); %Eosinophils 0.8 % (0.0-10.0); %Lymphocytes 17.3 % (21.0-51.0); %Monocytes 6.5 % (0.0-10.0); %Neutrophils 75.2 % (42.0-75.0); Hemoglobin 8.9 g/dL (14.0-18.0); Mean Corpuscular HGB CONC 33.4 g/dL (32.0-36.0); Mean Corpuscular Hemoglobin 26.6 pg (27.0-31.0); Mean Corpuscular Volume 79.6 fL (78.0-98.0); Mean Platelet Volume 7.7 fL (7.4-10.4); Platelet Count 245 thou/uL (130-400); Red Blood Cell (RBC) Count 3.36 mill/uL (4.70-6.10); White Blood Cell (WBC) Count 15.1 thou/uL (4.8-10.8)
[2018-12-09 07:03] LABS: ALT (SGPT) 9 U/L (8-55); AST (SGOT) 15 U/L (5-34); Albumin 3.5 g/dL (3.5-5.0); Alkaline Phosphatase 42 U/L (40-150); Anion Gap 10 mmol/L (10-20); BUN (Urea Nitrogen) 6 mg/dL (8.9-20.6); Bilirubin, Total 0.8 mg/dL (0.2-1.2); Calc. Creatinine Clearance 133 mL/min (70-130); Calcium 8.9 mg/dL (7.8-10.44); Carbon Dioxide 27 mmol/L (22-29); Chloride 106 mmol/L (98-107); Estimated GFR-MDRD Greater than 90; Globulin 2.1 g/dL (2.4-3.5); Glucose 101 mg/dL (70-105); Potassium 3.8 mmol/L (3.5-5.1); Protein, Total 5.6 g/dL (6.0-8.3); Sodium 139 mmol/L (136-145)
[2018-12-09] MEDS: Pantoprazole 40 MG VIAL IVP SCH (07:58)
--- NOTE | 2018-12-09 11:21 | PRG ---
DATE OF SERVICE: 12/09/2018 SUBJECTIVE: This is a 23-year-old male, hospitalized with anemia, history of black tarry stool over the last several days. He underwent EGD yesterday and was found to have active bleeding from the ulceration in the duodenum. The ulcer was right at the duodenal sweep. He had injection of epinephrine followed by a 7-Czech BICAP therapy. He has done well overnight. His blood count has been fairly stable. Last night, it was 8.9 and today, nothing changed, same thing as before. He is feeling better. He is tolerating clear liquid diet. He has no stool overnight. PHYSICAL EXAMINATION: GENERAL: Appears comfortable. VITAL SIGNS: Afebrile, pulse is 100, blood pressure 114/57. HEENT: Conjunctivae clear. CARDIOVASCULAR SYSTEM: First and second heart sounds heard normal. LUNGS: Clear to auscultation. ABDOMEN: Soft. No organomegaly. No tenderness. No masses. LABORATORY DATA: Chem-7 is essentially normal. Potassium 3.8. CLINICAL IMPRESSION: 1. Bleeding duodenal ulcer with control of bleeding with epinephrine injection and BICAP therapy. 2. Anemia of blood loss. RECOMMENDATIONS: 1. Advance diet to regular diet. 2. Continue PPI. 3. If he is stable, consider discharge home hopefully tomorrow. I had a long talk with Mr. River, explaining that he should not be taking aspirin medication. He is also to stop drinking alcohol. He will stay on the pantoprazole at least for 12 weeks. He will come back to see me in 2 weeks. If Helicobacter pylori comes positive, I will treat accordingly. Job ID: [id number]
--- NOTE | 2018-12-09 14:55 | PDOC.PN ---
- Subjective Encounter Start Date: 12/09/18 Encounter Start Time: 14:53 Subjective: feels better.no more bloody stools or black stools -: no abd pain. tolerating CLD -: no N/V - Objective Resuscitation Status - Order Detail: 12/08/18 07:24 Resuscitation Status Routine Resuscitation Status: FULL: Full Resuscitation MAR Reviewed: Yes Vital Signs & Weight: Vital Signs (12 hours) Temp Pulse Resp BP Pulse Ox 12/09/18 08:00 100 12/09/18 07:36 98.5 F 100 19 114/57 L 100 12/09/18 04:56 98.6 F 114 H 17 107/55 L 100 Weight Admit Weight 216 lb Weight 216 lb I&O: 12/08/18 12/09/18 12/10/18 06:59 06:59 06:59 Intake Total 350 600 Balance 350 600 Result Diagrams: 12/09/18 06:19 12/09/18 06:19 Additional Labs: Microbiology 12/07/18 21:25 Stool - Pending Stool Occult Blood (RODY) - Final Laboratory Tests 12/07/18 12/08/18 12/08/18 21:43 01:51 11:23 Hgb 8.6 L 8.3 L Iron 137 TIBC 248 L % Saturation 55 H Ferritin 12/08/18 12/08/18 12/08/18 11:23 11:23 18:49 Hgb 9.0 L 8.9 L Iron TIBC % Saturation Ferritin 70.36 12/09/18 06:19 Hgb 8.9 L Iron TIBC % Saturation Ferritin Radiology Reviewed by me: Yes (EGD- bleeding duodenal ulcer) Phys Exam - Physical Examination Constitutional: NAD HEENT: PERRLA, moist MMs, sclera anicteric, oral pharynx no lesions Neck: no nodes, no JVD, supple, full ROM Respiratory: no wheezing, no rales, no rhonchi, clear to auscultation bilateral Cardiovascular: RRR, no significant murmur Gastrointestinal: soft, non-tender, no distention, positive bowel sounds Musculoskeletal: no edema, pulses present Neurological: non-focal, normal sensation, moves all 4 limbs Psychiatric: normal affect, A&O x 3 Skin: no rash Dx/Plan (1) GI bleed Code(s): K92.2 - GASTROINTESTINAL HEMORRHAGE, UNSPECIFIED Status: Acute Qualifiers: GI bleed type/associated pathology: duodenal ulcer Qualified Code(s): K26.4 - Chronic or unspecified duodenal ulcer with hemorrhage Comment: s/p cauterization.cont ppi (2) Acute blood loss anemia Code(s): D62 - ACUTE POSTHEMORRHAGIC ANEMIA Status: Acute Comment: h/H stable. monitor. Will give IV iron and then start PO FeSo4. recheck in AM (3) Duodenal ulcer Status: Acute Comment: Cont PPI. ETOH abstinence counselled (4) Alcohol abuse Code(s): F10.10 - ALCOHOL ABUSE, UNCOMPLICATED Status: Chronic Comment: counselled (5) Tobacco abuse counseling Code(s): Z71.6 - TOBACCO ABUSE COUNSELING Status: Chronic (6) Tobacco abuse Code(s): Z72.0 - TOBACCO USE Status: Chronic - Plan out of bed/ambulate, DVT proph w/SCDs cont PPI. will give IV iron -: Home in am if H/H stable on PO PPI and PO FeSo4 -: HD stable. -: DC IVF -: Change PPI to Po * . Review of Systems - Review of Systems Constitutional: negative: fever, chills, sweats, weakness, malaise, other Respiratory: negative: Cough, Dry, Shortness of Breath, Hemoptysis, SOB with Excertion, Pleuritic Pain, Sputum, Wheezing Cardiovascular: negative: chest pain, palpitations, orthopnea, paroxysmal nocturnal dyspnea, edema, light headedness, other Gastrointestinal: negative: Nausea, Vomiting, Abdominal Pain, Diarrhea, Constipation, Melena, Hematochezia, Other Genitourinary: negative: Dysuria, Frequency, Incontinence, Hematuria, Retention , Other Musculoskeletal: negative: Neck Pain, Shoulder Pain, Arm Pain, Back Pain, Hand Pain, Leg Pain, Foot Pain, Other Skin: negative: Rash, Lesions, Hussain, Bruising, Other Neurological: negative: Weakness, Numbness, Incoordination, Change in Speech, Confusion, Seizures, Other - Medications/Allergies Allergies/Adverse Reactions: Allergies Allergy/AdvReac Type Severity Reaction Status Date / Time No Known Drug Allergies Allergy Verified 12/08/18 00:38 Medications: Current Medications Acetaminophen (Tylenol) 650 mg PO Q4H PRN PRN Reason: Headache/Fever/Mild Pain (1-3) Hydrocodone Bitart/Acetaminophen ([place] 5/325) 1 tab PO Q4H PRN PRN Reason: Moderate Pain (4-6) Artificial Tears (Tears Naturale) 2 drop EA EYE PRN PRN PRN Reason: Dry Eyes Bisacodyl (Dulcolax) 10 mg [place] DAILYPRN PRN PRN Reason: Constipation Calcium Carbonate (Tums) 1,000 mg PO Q4H PRN PRN Reason: Heartburn or Indigestion Guaifenesin (Robitussin Sf) 200 mg PO Q4H PRN PRN Reason: Cough Hydralazine HCl (Apresoline) 10 mg SLOW IVP Q4H PRN PRN Reason: SBP > 180 and HR < 70 Sodium Chloride (Normal Saline 0.9%) 1,000 mls @ 100 mls/hr IV .Q10H [facility] Last Admin: 12/09/18 03:09 Dose: 1,000 mls Loperamide HCl (Imodium) 2 mg PO PRN PRN PRN Reason: Diarrhea/Loose Stools Loratadine (Claritin) 10 mg PO DAILYPRN PRN PRN Reason: Sinus Symptoms Mineral Oil/White Petrolatum (Eucerin Cream) 0 gm TOP BIDPRN PRN PRN Reason: Dry Skin Ondansetron HCl (Zofran Odt) 4 mg PO Q6H PRN PRN Reason: Nausea/Vomiting Ondansetron HCl (Zofran) 4 mg IVP Q6H PRN PRN Reason: Nausea/Vomiting Pantoprazole Sodium (Protonix) 40 mg IVP Q12HR MELISSA Last Admin: 12/09/18 07:58 Dose: 40 mg Senna/Docusate Sodium (Senokot S) 2 tab PO BID PRN PRN Reason: Constipation Sodium Chloride (Normal Saline Pf) 10 ml FS PRN PRN PRN Reason: RECONSTITUTION Last Admin: 12/09/18 07:58 Dose: 10 ml Sodium Chloride ([place] Nasal [place] 0.65%) 0 ml EA NARE QIDPRN PRN PRN Reason: Nasal Congestion Throat Lozenges (Cepastat Lozenges) 1 monie PO Q2H PRN PRN Reason: Sore Throat Zolpidem Tartrate (Ambien) 5 mg PO HSPRN PRN PRN Reason: Insomnia Last Admin: 12/08/18 21:03 Dose: 5 mg
[2018-12-09] MEDS ORDERED: Iron Sucrose Complex 200 MG in Sodium Chloride 0.9% 250 ML 250 ML IVPB SCH (15:00)
[2018-12-09] MEDS ORDERED: Iron, Sodium Ferric Gluconate 250 MG in Sodium Chloride 0.9% 100 ML IVPB SCH (15:45)
[2018-12-09] MEDS: Zolpidem Tartrate 5 MG TAB PO PRN (21:56)
[2018-12-10 06:49] LABS: Hemoglobin 8.7 g/dL (14.0-18.0)
[2018-12-10 07:56] VITALS: BP 105/58; TEMP 98.3
--- NOTE | 2018-12-10 12:44 | PRG ---
DATE OF SERVICE: 12/10/2018 SUBJECTIVE: This is a 23-year-old male with GI bleeding, melena, anemia. An EGD was done on Tuesday evening and was found to have bleeding ulcer in the duodenum. He underwent injection of epinephrine followed by BiCAP therapy. He has done well over the last 48 hours. He has no abdominal pain, no nausea or vomiting. He is not having anymore recurrence of bleeding. Blood count is stable. The hemoglobin today is 8.9. He is tolerating regular diet. PHYSICAL EXAMINATION: GENERAL: Appears comfortable. VITAL SIGNS: Afebrile, pulse is 77, blood pressure is 105/58. HEENT: Conjunctivae clear. CARDIOVASCULAR: First and second heart sounds heard. LUNGS: Clear to auscultation. ABDOMEN: Soft. No organomegaly. No tenderness. No masses. RECOMMENDATIONS: 1. Discharge home on pantoprazole 40 once a day. 2. Iron supplement. 3. The patient is advised not to smoke or drink alcohol. 4. . The patient will come back to see me in 2 weeks. Gastric biopsy shows Helicobacter, we will treat accordingly. Job ID: [id number]
--- NOTE | 2018-12-10 14:45 | DIS ---
DATE OF ADMISSION: 12/08/2018 DATE OF DISCHARGE: 12/10/2018 CONDITION: At the time of discharge, stable and improved. DISCHARGE DISPOSITION: Home. DISCHARGE DIAGNOSES: 1. Gastrointestinal bleed secondary to duodenal ulcer. 2. Acute blood loss anemia secondary to duodenal ulcer and gastrointestinal bleed. 3. Duodenal ulcer status post cauterization. 4. Chronic alcohol abuse. 5. Tobacco abuse. DISCHARGE MEDICATIONS: As follows Protonix 40 mg p.o. b.i.d., ferrous sulfate 325 mg p.o. b.i.d. IN-HOUSE CONSULTATION: Gastroenterology, Dr. Rodriguez. PROCEDURES DONE IN THE HOSPITAL: EGD, which showed duodenal ulcer which was bleeding and it was injected with epinephrine followed by BICAP therapy by Dr. Rodriguez on 12/09/2018. HISTORY OF PRESENTING ILLNESS: Mr. River is a 23-year-old Afro-[place] male with past medical history of alcohol and tobacco abuse, who presented to the emergency room with complaints of passing bright red blood as well as dark melenic stools. It was associated with weakness and dizziness. He drinks almost on a daily basis. His hemoglobin was found to be 8.6, so he was admitted for further evaluation and care. Please see admission history and physical dictated by Dr. Blanca on 12/08/2018 for full details. Gastroenterology was consulted, and he received 1 unit of packed RBCs. HOSPITAL COURSE: Serial H and H were monitored and his hemoglobin stayed around 8.7. He underwent EGD by Dr. Rodriguez. He was found to have a bleeding duodenal ulcer, which was cauterized. Hemostasis was achieved and H and H remained stable. He was started on ferrous sulfate and a proton pump inhibitor twice a day. Strong tobacco and alcohol cessation counseling was done and the patient was agreeable. As of this morning, he has been cleared for discharge from GI standpoint. He was seen and examined prior to discharge. PHYSICAL EXAMINATION: This morning, VITAL SIGNS: Temperature 98.3, pulse of 77, respirations 17, saturating 99% on room air, blood pressure 105/50. GENERAL: No acute distress. Awake, alert, and oriented x3. CHEST: Clear to auscultation bilaterally. ABDOMEN: Soft, nontender, and nondistended with positive bowel sounds. DISCHARGE PLAN: Discharge plan was discussed with the patient who verbalized understanding. Job ID: [id number]
--- NOTE | 2018-12-11 12:07 | OP ---
DATE OF PROCEDURE: 12/08/2018 PROCEDURES PERFORMED: 1. Esophagogastroduodenoscopy with biopsy. 2. Esophagogastroduodenoscopy with injection of 1:10,000 epinephrine to control bleeding. 3. Esophagogastroduodenoscopy with 7-Romanian BICAP probe to control bleeding over the duodenum. PREOPERATIVE DIAGNOSES: Anemia, melena. POSTOPERATIVE DIAGNOSIS: Large and deep ulceration over the duodenum just past the duodenal bulb at the angle with bleeding of visible vessel. DESCRIPTION OF PROCEDURE: The patient was placed on the left lateral position and was given sedation by Anesthesia Department. A Pentax video gastroscope under direct vision was passed down the oropharynx, past the GE junction into the stomach and subsequently into the descending duodenum. The esophageal mucosa appeared normal. In the GE junction, no pathology seen. In the fundus and cardia, gastric body, gastric antrum, no abnormalities. The stomach was completely free of any blood or any coffee-ground material. The scope was advanced into the duodenal bulb and just past the sweep into the descending duodenum. duodenal sweep, the patient had a deep ulceration with large vessel bleeding. I tried to irrigate, however, the water pump really did not work out. The water pump was received from another room and again I could not really irrigate, which made the exam very difficult. Also following propofol, the patient started having hiccups continuously. It was difficult to hold the scope in position. Due to he had hiccups, the scope fell back into the stomach. Also with the angle, it was somewhat difficult to get access to it. Finally, I was able to inject epinephrine 1:10,000, sent at 1 mL increments, a total of 7.5 mL. Following injection, I tried to irrigate and I could not irrigate because the pump did not work out. I was able to pass a 7-Romanian BICAP and the ulcer base was cauterized with good hemostasis. The scope was withdrawn back to the stomach and advanced back to the duodenum again. I did not see any visible vessel or any bleeding at the cauterized area. The scope was withdrawn back to the stomach and biopsy obtained from the gastric antrum and body. The stomach decompressed and the scope removed. RECOMMENDATION: 1. Stat CBC. 2. Clear liquid diet. 3. Continue PPI. 4. . 5. May consider second look EGD tomorrow. Job ID: [id number]
== END 2018-12-10 11:30 | disposition home or self-care (01) | DRG 378 ==
LOC: SCSER 20:42 → T4-A 12-08 00:03
PROVIDERS: ADMIT Internal Medicine; ATTEND Internal Medicine
PROC: 0W3P8ZZ Control Bleeding in Gastrointestinal Tract, Via Natural or Artificial Opening Endoscopic (ICD-10-PCS; principal; 2018-12-08)
PROC: 0DB78ZX Excision of Stomach, Pylorus, Via Natural or Artificial Opening Endoscopic, Diagnostic (ICD-10-PCS; 2018-12-08)
PROC: 30233N1 Transfusion of Nonautologous Red Blood Cells into Peripheral Vein, Percutaneous Approach (ICD-10-PCS; 2018-12-08)
DX: K26.4 Chronic or unspecified duodenal ulcer with hemorrhage (principal); D62 Acute posthemorrhagic anemia; F17.210 Nicotine dependence, cigarettes, uncomplicated; F10.10 Alcohol abuse, uncomplicated; B96.81 Helicobacter pylori [H. pylori] as the cause of diseases classified elsewhere
CPT/HCPCS: 36415; 36430; 80053; 82274; 82728; 83540; 83550; 85014; 85018; 85025; 85610; 85730; 86850; 86900; 86901; 88305; 88312; 96361; 96374; C9113; J0171; J2405; J2704; J2916; J3010; J3490; P9016

== ENCOUNTER 2020-10-26 13:40 | Emergency (ER) | payer SELFPAY ==
[2020-10-26 14:37] LABS: Hemoglobin 15.5 g/dL (14.0-18.0); Mean Corpuscular HGB CONC 32.3 g/dL (32.0-36.0); Mean Corpuscular Hemoglobin 26.6 pg (27.0-31.0); Mean Corpuscular Volume 82.4 fL (78.0-98.0); Mean Platelet Volume 7.2 fL (7.4-10.4); Platelet Count 289 thou/uL (130-400); RBC Distribution Width 13.9 % (11.5-14.5); Red Blood Cell (RBC) Count 5.81 mill/uL (4.70-6.10); White Blood Cell (WBC) Count 7.3 thou/uL (4.8-10.8)
[2020-10-26 14:47] LABS: ALT (SGPT) 15 U/L (8-55); AST (SGOT) 22 U/L (5-34); Albumin 4.2 g/dL (3.5-5.0); Alkaline Phosphatase 68 U/L (40-110); Anion Gap 15 mmol/L (10-20); BUN (Urea Nitrogen) 11 mg/dL (8.9-20.6); Bilirubin, Total 0.6 mg/dL (0.2-1.2); Calc. Creatinine Clearance 0 mL/min (70-130); Calcium 9.2 mg/dL (7.8-10.44); Carbon Dioxide 26 mmol/L (22-29); Chloride 103 mmol/L (98-107); Globulin 2.7 g/dL (2.4-3.5); Glucose 94 mg/dL (70-105); Potassium 4.7 mmol/L (3.5-5.1); Protein, Total 6.9 g/dL (6.0-8.3); Sodium 139 mmol/L (136-145)
[2020-10-26 14:55] LABS: Eosinophils 5 % (0-10); Lymphocytes 29 % (21-51); MDiff Complete? YES; Monocytes 5 % (0-10); Neutrophil 61 % (42-75); Platelet Morphology Comment Appears Adequate; RBC Morphology Normal
== END 2020-10-26 16:30 | disposition home or self-care (01) ==
LOC: ERS 13:40
DX: R42 Dizziness and giddiness (principal)
CPT/HCPCS: 36415; 36416; 80053; 85025; 94760

== ENCOUNTER 2021-10-26 18:46 | Emergency (ER) | payer SELFPAY ==
[2021-10-26] MEDS ORDERED: Mag-Al 1200 mg/1200 mg/30 ML UDCUP ONE (19:20)
[2021-10-26] MEDS ORDERED: Pantoprazole 40 MG VIAL ONE (19:20)
[2021-10-26] MEDS ORDERED: Lidocaine Viscous Sol 2% 15 ml UD Cup ONE (19:20)
[2021-10-26 19:27] LABS: #Basophils 0.1 thou/uL (0.0-0.2); #Eosinphils 0.1 thou/uL (0.0-0.7); #Lymphocytes 2.1 thou/uL (1.20-3.40); #Monocytes 0.5 thou/uL (0.11-0.59); #Neutrophils 4.2 thou/uL (1.40-6.50); %Basophils 0.9 % (0.0-1.0); %Eosinophils 1.9 % (0.0-10.0); %Lymphocytes 30.4 % (21.0-51.0); %Monocytes 7.4 % (0.0-10.0); %Neutrophils 59.3 % (42.0-75.0); Hemoglobin 15.1 g/dL (14.0-18.0); Mean Corpuscular HGB CONC 32.3 g/dL (32.0-36.0); Mean Corpuscular Hemoglobin 26.8 pg (27.0-31.0); Mean Platelet Volume 6.9 fL (7.4-10.4); Platelet Count 254 thou/uL (130-400); RBC Distribution Width 13.6 % (11.5-14.5); Red Blood Cell (RBC) Count 5.63 mill/uL (4.70-6.10)
[2021-10-26 19:29] LABS: Bilirubin Negative (Negative); Blood, Urine Negative (Negative); Clarity Clear (Clear); Glucose, Urine (Dipstick) Normal (Negative); Ketone, Urine Negative (Negative); Leukocyte Negative Leu/uL (Negative); Nitrite Negative (Negative); Protein, Urine (Dipstick) Negative (Neg-Trace); Specific Gravity, Urine 1.006 (1.002-1.036); Urobilinogen Normal mg/dL (Less than 2)
[2021-10-26 19:47] LABS: ALT (SGPT) 14 U/L (8-55); AST (SGOT) 19 U/L (5-34); Alkaline Phosphatase 57 U/L (40-110); Anion Gap 12 mmol/L (10-20); BUN (Urea Nitrogen) 7 mg/dL (8.9-20.6); Bilirubin, Total 0.4 mg/dL (0.2-1.2); Calc. Creatinine Clearance 0 mL/min (70-130); Calcium 9.2 mg/dL (7.8-10.44); Carbon Dioxide 27 mmol/L (22-29); Chloride 105 mmol/L (98-107); Glucose 108 mg/dL (70-105); Lipase 10 U/L (8-78); Potassium 3.9 mmol/L (3.5-5.1); Sodium 140 mmol/L (136-145)
== END 2021-10-26 20:21 | disposition home or self-care (01) ==
LOC: ERS 18:46
DX: K29.00 Acute gastritis without bleeding (principal); F17.210 Nicotine dependence, cigarettes, uncomplicated
CPT/HCPCS: 76705; 80053; 81003; 83690; 85025; 96374; C9113

== ENCOUNTER 2023-05-05 19:13 | Emergency (ER) | payer OTHER, SELFPAY ==
[2023-05-05] MEDS ORDERED: Ketorolac Tromethamine 30 MG/ML VIAL ONE (21:06)
== END 2023-05-05 21:35 | disposition home or self-care (01) ==
LOC: ERS 19:13
DX: K08.89 Other specified disorders of teeth and supporting structures (principal); K02.9 Dental caries, unspecified; F17.210 Nicotine dependence, cigarettes, uncomplicated
CPT/HCPCS: 96372; 99283; J1885

== ENCOUNTER 2023-05-07 13:03 | Emergency (ER) | payer OTHER | END 2023-05-07 14:04 | disposition home or self-care (01) | LOC: ERS 13:03 | DX: K02.9 Dental caries, unspecified (principal); K21.9 Gastro-esophageal reflux disease without esophagitis; F17.210 Nicotine dependence, cigarettes, uncomplicated | CPT/HCPCS: 99282 ==

== ENCOUNTER 2023-07-29 13:16 | Emergency (ER) | payer OTHER, SELFPAY ==
[2023-07-29] MEDS ORDERED: Ketorolac Tromethamine 30 MG/ML VIAL ONE (15:22)
== END 2023-07-29 13:27 | disposition home or self-care (01) ==
LOC: ERS 13:16
DX: K08.89 Other specified disorders of teeth and supporting structures (principal); F17.210 Nicotine dependence, cigarettes, uncomplicated
CPT/HCPCS: 96372; 99282; J1885